=== PATIENT | male | born 1995 | race Caucasian/White ===

== ENCOUNTER 2018-07-19 21:03 | Emergency (ER) | payer SELFPAY ==
[~2018-07-19] VITALS: Ht 172.7 cm; Wt 72.6 kg
--- NOTE | 2018-07-19 21:22 | PHYS DOC ---
Past Medical History Past Medical History Unable to obtained due to intoxication (EPI GREEN DO) Past Surgical History Unable to obtained due to intoxication (EPI GREEN DO) Alcohol Use: Heavy Social History Unable to obtained due to intoxication (EPI GREEN DO) Adult General Chief Complaint Chief Complaint: DRUG ABUSE HPI HPI Patient is a 22 year old M who was at the [employer] concert at [facility]. Per EMS report he has been drinking heavily and smoking THC and was found on ground covered in vomit. There are no reports of injury or fall, but this is not known for sure. Pt arrives covered in vomit. His vitals are stable. He will awake to sternal rub and loud voice but is very intoxicated. (LUCAS MATHEWS) Review of Systems Review of Systems Limited due to intoxication Constitutional: Denies fever or chills Respiratory: Denies cough or shortness of breath Cardiovascular: Denies chest pain GI: Denies abdominal pain, nausea, bloody stools or diarrhea. Vomit on front of shirt. Musculoskeletal: Denies back pain or joint pain Integument: Denies rash or skin lesions Neurologic: Intoxicated. All other systems were reviewed and found to be within normal limits, except as documented in this note. (LUCAS MATHEWS) Current Medications Current Medications Current Medications Medications (Trade) Dose Ordered Sig/Kristina Start Time Stop Time Status Last Admin Dose Admin Ondansetron HCl (Zofran Odt) 4 mg 1X ONCE 07/19/18 21:30 07/19/18 21:31 DC (EPI GREEN DO) Allergies Allergies Allergies Coded Allergies Type Severity Reaction Last Updated Verified Unable to Assess 07/19/18 No (EPI GREEN DO) Physical Exam Physical Exam Constitutional: Well developed, well nourished. Intoxicated, groggy. HENT: Normocephalic, atraumatic, bilateral external ears normal, oropharynx moist, no oral exudates, nose normal. Eyes: PERRLA, EOMI, conjunctiva normal, no discharge. Neck: Normal range of motion, no tenderness, supple, no stridor. Cardiovascular:Heart rate regular rhythm, no murmur Lungs & Thorax: Bilateral breath sounds clear to auscultation Abdomen: Bowel sounds normal, soft, no tenderness, no masses, no pulsatile masses. Skin: Warm, dry, no erythema, no rash. Back: No tenderness, no CVA tenderness. Extremities: No tenderness, no cyanosis, no clubbing, ROM intact, no edema. Neurologic: Intoxicated, groggy, awakes to sternal rub and loud voice briefly. (LUCAS MATHEWS) Physical Exam Constitutional: Well developed, well nourished. arouses to voice HENT: Normocephalic, atraumatic Eyes: EOMI, conjunctiva normal, no discharge. Neck: Normal range of motion, no tenderness, supple Cardiovascular: Heart rate normal, regular rhythm Lungs & Thorax: Bilateral breath sounds clear to auscultation Abdomen: Soft, no tenderness Skin: Warm, dry, no erythema Extremities: No tenderness, ROM intact, no edema. Neurologic: Intoxicated, voice normal, ambulatory, no focal deficit (EPI GREEN DO) Current Patient Data Vital Signs Vital Signs Date Time Temp Pulse Resp B/P (MAP) Pulse Ox O2 Delivery O2 Flow Rate FiO2 07/20/18 01:11 76 12 94 07/19/18 21:15 98.2 107/62 (77) Room Air 98.2 (EPI GREEN DO) EKG EKG [] (LUCAS MATHEWS) Radiology/Procedures Radiology/Procedures CT head and neck neg for acute findings (LUCAS MATHEWS) Course & Med Decision Making Course & Med Decision Making Pertinent Labs and Imaging studies reviewed. (See chart for details) Pt's CT's reassuring and his vitals remain stable. He is sleeping off alcohol intoxication. No respiratory distress or signs of aspiration. Pt sleeping and will be handed off to Dr. Green pending his sobering up and ability to give us info to contact family or friend to come pick him up. (LUCAS MATHEWS) Course & Med Decision Making 0100- Sign out received from Trina SYLVESTER with reports of ETOH intoxication with vomiting. Patient pending clinical sobriety. Patient seen and evaluated by myself. CT head/cervical spine without acute process. 0200- Patient now clinically sober. Will call for ride. Patient stable for discharge with outpatient follow-up with PCP. Prescription for Zofran and discharge instructions previously printed. Discussed findings and plan with patient, who acknowledges understanding and agreement. (EPI GREEN DO) Dragon Disclaimer Dragon Disclaimer This electronic medical record was generated, in whole or in part, using a voice recognition dictation system. (LUCAS MATHEWS) Departure Departure Impression: Primary Impression: Alcohol intoxication Disposition: 01 HOME, SELF-CARE Condition: IMPROVED Patient Instructions: Alcohol Intoxication, [id number] Additional Instructions: Push fluids and avoid alcohol. Scripts Ondansetron Hcl (ZOFRAN) 4 Mg Tablet 1 TAB PO Q6HRS PRN for NAUSEA/VOMITING, #12 TAB Prov: LUCAS MATHEWS 07/19/18 Attending Signature Attending Signature I have personally interviewed and examined the patient. All charts, labs, and im aging studies were reviewed. I agree with the PA/DIRECTOR RECREATION's findings, exam, and plan. (EPI GREEN DO) Problem Qualifiers Primary Impression: Alcohol intoxication Complication of substance-induced condition: with delirium Qualified Codes: F10.921 - Alcohol use, unspecified with intoxication delirium LUCAS MATHEWS July 19, 2018 21:21 EPI GREEN DO July 20, 2018 02:08
[2018-07-19] MEDS ORDERED: ONDANSETRON ODT 4 MG TAB.RAPDIS. PO ONE (21:30)
--- NOTE | 2018-07-19 22:27 | RAD ---
CT scan of the head without contrast 07/19/2018 Clinical History: Intoxicated. Patient found on ground. Technique: Unenhanced, contiguous, 5 mm axial sections were obtained through the head. One or more of the following individualized dose reduction techniques were utilized for this study: 1. Automated exposure control. 2. Adjustment of the mA and/or kV according to patient size. 3. Use of iterative reconstruction technique. Findings: The ventricles and sulci are within normal limits in size and configuration. No area of abnormal attenuation is seen involving brain parenchyma. No extra-axial fluid collection is seen. No skull fracture is seen. Impression: No acute intracranial abnormality is seen. CT scan of the cervical spine without contrast 07/19/2018 Clinical history: Intoxicated. Patient found on ground. Possible neck injury. Technique: Unenhanced, contiguous, 0.625 mm axial sections were obtained through the cervical spine. Axial, coronal and sagittal reconstructed images were obtained. One or more of the following individualized dose reduction techniques were utilized for this study: 1. Automated exposure control. 2. Adjustment of the mA and/or kV according to patient size. 3. Use of iterative reconstruction technique. Findings: Sagittal and coronal reconstructed images demonstrate mild lateral curvature of the cervical spine, convex to the left. There is straightening of the normal cervical lordosis. No fracture or subluxation of the cervical vertebrae is seen. Impression: No fracture or subluxation of the cervical vertebra is identified. Electronically signed by: Edward River MD (07/19/2018 10:24 PM) [facility]
[2018-07-19] MEDS ORDERED: ONDA4TAB7 PO (22:44)
[2018-07-20 01:11] VITALS: BP 97/44
== END 2018-07-20 02:05 | disposition home or self-care (01) ==
LOC: ER 21:03
DX: F10.229 Alcohol dependence with intoxication, unspecified (principal); F12.90 Cannabis use, unspecified, uncomplicated; R11.10 Vomiting, unspecified; Y90.9 Presence of alcohol in blood, level not specified
CPT/HCPCS: 70450; 72125; 99284